=== PATIENT | female | born 2000 | race Caucasian/White ===

== ENCOUNTER 2019-04-01 16:25 | Emergency (ER) | payer MEDICAID, MEDICARE ==
[~2019-04-01] VITALS: Ht 167.6 cm; Wt 95.0 kg
[~2019-04-01 16:25] MED LIST: OXYC-302 PO
--- NOTE | 2019-04-01 17:35 | NUR ---
PATIENT PRESENTS TO ED TODAY FOR BLOOD IN STOOL X 2, ONE LAST NIGHT AND ONE TODAY. PATIENT REPORTS RECENT HETEROTOPIC LAST WEEK, (1 REMOVED DUE TO TUBAL ) AND 1 CURRENT IUP. A0. MOTHER AT BEDSIDE, AWAITING MD ORDERS, CALL LIGHT WITHIN REACH.
--- NOTE | 2019-04-01 18:36 | NUR ---
LAB AT BEDSIDE, VS UPDATED IN CHART, YEIMY. AWAITING LAB RESULTS. CALL LIGHT WITHIN REACH. [id number].
[2019-04-01 18:59] LABS: BASOPHILS # (AUTO) 0.04 x10^3/uL (0-0.3); BASOPHILS % (AUTO) 0 % (0-1); EOSINOPHILS # (AUTO) 0.06 x10^3/uL (0-0.8); EOSINOPHILS % (AUTO) 0 % (1-7); LYMPHOCYTES # (AUTO) 2.16 x10^3/uL (1-6.1); LYMPHOCYTES % (AUTO) 15 % (22-44); MD NO; MEAN CORPUSCULAR HEMOGLOBIN 30.7 pg (27.0-34.8); MEAN CORPUSCULAR HGB CONC 33.5 g/dL (32.4-35.8); MEAN CORPUSCULAR VOLUME 91.8 fL (80-100); MEAN PLATELET VOLUME 8.4 fL (7.4-10.4); MONOCYTES # (AUTO) 0.21 x10^3/uL (0-1.4); MONOCYTES % (AUTO) 2 % (2-9); NEUTROPHILS # (AUTO) 12.22 x10^3/uL (1.8-8.0); NEUTROPHILS % (AUTO) 83 % (42-75); PLATELET COUNT 494 x10^3/uL (130-400); RED BLOOD COUNT 4.36 x10^6/uL (3.82-5.3); RED CELL DISTRIBUTION WIDTH 14.6 % (9.6-15.2)
[2019-04-01 19:08] LABS: ALANINE AMINOTRANSFERASE 29 U/L (12-78); ALBUMIN 3.4 g/dL (3.4-5.0); ANION GAP 8 mmol/L (5-15); CALCIUM 9.1 mg/dL (8.5-10.1); CHLORIDE 108 mmol/L (98-107); CREATININE 0.56 mg/dL (0.55-1.02)
[2019-04-01 19:10] LABS: ALKALINE PHOSPHATASE 117 U/L (45-117); BILIRUBIN,TOTAL 0.4 mg/dL (0.2-1.0); TOTAL PROTEIN 7.4 g/dL (6.4-8.2)
--- NOTE | 2019-04-01 19:26 | NUR ---
REQUESTING A FEMAL ERP FOR EXAM. Addendum: 04/01/19 at 1926 by PSEGER FOR RECTAL EXAM.
--- NOTE | 2019-04-01 20:05 | NUR ---
D/C INST REVIEWED W/ THE PT AND THE PT FAMILY. TO INCLUDE TAKING A VIT DAILY, COMMUNITY RESOURCES FOR CARE AND MEDICAL COVERAGE ASST. S/S TO RETURN TO AND RETURN NEEDED. THE PT VERB UNDERSTANDING AND DENIES NEEDS. THE PT AMB OUT OF THE ED W/O DIFF.
[2019-04-01 20:07] VITALS: BP 113/73
== END 2019-04-01 20:10 | disposition home or self-care (01) ==
LOC: ED 20:00
DX: O99.611 Diseases of the digestive system complicating pregnancy, first trimester (principal); K62.5 Hemorrhage of anus and rectum; Z87.891 Personal history of nicotine dependence; Z3A.10 10 weeks gestation of pregnancy
CPT/HCPCS: 36415; 80053; 83690; 85025; 99283